=== PATIENT | male | born 1955 | race Caucasian/White ===

== ENCOUNTER 2017-02-12 11:06 | Outpatient (CLI) | payer OTHER | END 2017-02-12 11:07 | disposition home or self-care (01) | LOC: DI 11:06 | PROVIDERS: ATTEND Physician Assistant | DX: R01.1 Cardiac murmur, unspecified (principal); I08.2 Rheumatic disorders of both aortic and tricuspid valves | CPT/HCPCS: 93306 ==

== ENCOUNTER 2019-02-20 09:46 | Outpatient (CLI) | payer OTHER | END 2019-02-20 09:47 | disposition home or self-care (01) | LOC: DI 09:46 | PROVIDERS: ATTEND Physician Assistant | DX: I10 Essential (primary) hypertension (principal); I35.2 Nonrheumatic aortic (valve) stenosis with insufficiency | CPT/HCPCS: 93306 ==

== ENCOUNTER 2019-06-20 09:51 | Outpatient (CLI) | payer OTHER ==
--- NOTE | 2019-06-20 10:15 | XRAY Report ---
Reason: DYSPNEA Procedure Date: 06/20/2019 Accession Number: [id number] / [id number] Procedure: XR - Chest 2 View X-Ray CPT Code: 08831 Final Report FULL RESULT: EXAM: CHEST RADIOGRAPHY EXAM DATE: 06/20/2019 10:01 AM. CLINICAL HISTORY: DYSPNEA. COMPARISON: 09/17/2007 11:04 AM. TECHNIQUE: 2 views. FINDINGS: Lungs/Pleura: Lung volumes are within normal limits. There is reticular opacity within the left lung base. There is a small left pleural effusion. There is no pneumothorax. Mediastinum: Normal heart size. There is thoracic aorta tortuosity. Patient has undergone median sternotomy. Other: None. IMPRESSION: 1. Normal lung volumes and heart size. Patient has undergone median sternotomy. 2. There is reticular opacity within the left lung base. This could represent atelectasis or resolving infiltrate. 3. There is a small left pleural effusion. 4. There is no evidence of pneumothorax. RADIA
== END 2019-06-20 09:52 | disposition home or self-care (01) ==
LOC: DI 09:51
PROVIDERS: ATTEND Physician Assistant
DX: R91.8 Other nonspecific abnormal finding of lung field (principal); J90 Pleural effusion, not elsewhere classified
CPT/HCPCS: 71046

== ENCOUNTER 2021-05-16 21:41 | Outpatient (CLI) | payer OTHER | END 2021-05-16 21:42 | disposition critical access hospital (66) | LOC: EMS 21:41 | DX: I95.9 Hypotension, unspecified (principal); I44.1 Atrioventricular block, second degree; R40.0 Somnolence; R32 Unspecified urinary incontinence; R15.9 Full incontinence of feces | CPT/HCPCS: A0425; A0427 ==

== ENCOUNTER 2021-05-16 22:08 | Emergency (ER) | payer OTHER ==
[2021-05-16] MEDS ORDERED: SODIUM CHLORIDE 0.9% 1,000 ML IV STA (22:18)
[2021-05-16] MEDS ORDERED: EPINEPHrine 4 MG in DEXTROSE 5% 246 ML IV STA (22:22)
--- NOTE | 2021-05-16 22:23 | ED Physician Documentation ---
PD HPI CHEST PAIN - Stated complaint Stated Complaint: Mobitz 2 Heart Block - Chief complaint Chief Complaint: Cardiac - History obtained from History obtained from: Patient, EMS - History of Present Illness Timing - onset: Today Timing - onset during: Rest Timing - duration: Days (1) Timing - details: Gradual onset, Still present Quality: Tightness. No: Sharp, Tearing Location: Other (The patient denies chest pain per se. He states he was feeling some pressure in the chest generally and also general weakness.) Radiation: No: Back, Abdominal Associated symptoms: Shortness of air, Nausea, Feeling faint / dizzy, General W eakness Similar symptoms before: Has not had sx before Recently seen: Clinic (reportedly had Duloxetine med added few weeks ago for mood disorder by PMD. Also with low back pain exacerbation recently and had steroid IM at clinic last week.) Review of Systems Constitutional: denies: Fever Nose: denies: Rhinorrhea / runny nose, Congestion Throat: denies: Sore throat Cardiac: reports: Pedal edema (chronic). denies: Palpitations, Calf pain Respiratory: reports: Dyspnea. denies: Cough GI: reports: Nausea, Bloody / black stool (he states had some dark stools without diarrhea for several days.). denies: Vomiting, Diarrhea : denies: Dysuria Neurologic: reports: Generalized weakness, Near syncope, Confused (today with pale color), Altered mental status. denies: Focal weakness, Numbness, Syncope PD PAST MEDICAL HISTORY - Past Medical History Cardiovascular: Congestive heart failure, Coronary artery disease (with CABG 2 years ago at [facility], Dr. Aguilar?) Respiratory: None Neuro: None Endocrine/Autoimmune: None Musculoskeletal: Chronic back pain Derm: Other (no reported history of leukemia/lymphoma.) - Present Medications Home Medications: Ambulatory Orders Medication Instructions Recorded Confirmed Atorvastatin Calcium [Lipitor] 80 mg PO DAILY 05/16/21 05/16/21 Cyclobenzaprine [Flexeril] 10 mg PO TID 05/16/21 05/17/21 DULoxetine [Cymbalta] 20 mg PO DAILY 05/16/21 05/17/21 Losartan [Cozaar] 50 mg PO DAILY 05/16/21 05/17/21 Meloxicam [Mobic] 7.5 mg PO DAILY 05/16/21 05/17/21 hydrOXYzine HCL [Hydroxyzine HCl] 25 mg PO DAILY 05/16/21 05/16/21 traZODone [Desyrel] 50 mg PO DAILY 05/16/21 05/16/21 clonazePAM [Clonazepam] 1 mg PO DAILY 05/17/21 05/17/21 - Allergies Allergies/Adverse Reactions: Allergies Allergy/AdvReac Type Severity Reaction Status Date / Time No Known Drug Allergies Allergy Verified 05/16/21 22:14 PD ED PE NORMAL - Vitals Vital signs reviewed: Yes (paced rhythm externally) - General General: Well developed/nourished, Other (slightly sluggish responses, but spontaneous eye opening and follows commands. ) - HEENT HEENT: Pharynx benign - Neck Neck: Supple, no meningeal sign, No adenopathy, No bruit, Other (has JVD at 60 degrees.) - Cardiac Cardiac: Other (Right sided murmur consistent with likely mitral.). No: RRR (He has twitching of the right pectoral muscles from the external pacer. This is uncomfortable for him. Monitor shows capture and has a heart sounds consistent with pacer capturing.) - Respiratory Respiratory: No: Clear bilaterally (Some fine crackles in the bases. No coarse sounds no wheezing.) - Abdomen Abdomen: Soft, Non tender - Back Back: No CVA TTP - Derm Derm: Warm and dry. No: Normal color (pale coloration) - Extremities Extremities: Normal ROM s pain, No calf tenderness / cord, Other (1+ edema in both lower legs. faint DP pulses in feet. Also faint radial pulses. ) - Neuro Neuro: Alert and oriented X 3, No motor deficit, Normal speech Results - Vitals Vitals: Vital Signs - 24 hr 05/16/21 05/16/21 05/16/21 22:14 22:29 22:30 Temperature 34.5 C L Heart Rate 80 80 Respiratory 7 L 19 35 H Rate Blood Pressure 92/54 L 106/60 O2 Saturation 88 L 100 05/16/21 05/16/21 05/16/21 22:36 22:41 22:48 Temperature Heart Rate 80 80 80 Respiratory 38 H 21 37 H Rate Blood Pressure 89/60 L 78/56 L 82/55 L O2 Saturation 100 100 97 05/16/21 05/16/21 05/16/21 22:51 22:57 22:58 Temperature Heart Rate 80 80 80 Respiratory 22 21 13 Rate Blood Pressure 102/44 L 102/44 L 82/51 L O2 Saturation 96 99 96 05/16/21 05/16/21 05/16/21 23:04 23:07 23:16 Temperature Heart Rate 80 80 80 Respiratory 21 10 L 30 H Rate Blood Pressure 83/58 L 85/60 L 93/61 O2 Saturation 92 97 95 05/16/21 05/16/21 05/16/21 23:20 23:30 23:33 Temperature Heart Rate 80 80 80 Respiratory 19 20 18 Rate Blood Pressure 64/29 L 78/58 L 75/58 L O2 Saturation 94 92 91 L 05/16/21 05/16/21 05/16/21 23:37 23:44 23:57 Temperature Heart Rate 80 80 80 Respiratory 18 15 15 Rate Blood Pressure 71/59 L 89/65 L 83/44 L O2 Saturation 99 92 93 05/17/21 00:00 Temperature Heart Rate 80 Respiratory 21 Rate Blood Pressure 93/56 L O2 Saturation 92 Oxygen O2 Source Nasal cannula Oxygen Flow Rate 2 - Labs Labs: Laboratory Tests 05/16/21 05/16/21 05/16/21 00:02 00:02 22:30 WBC RBC Hgb Hct MCV MCH MCHC RDW Plt Count MPV Neut # (Auto) Lymph # (Auto) [place] # (Auto) Eos # (Auto) Baso # (Auto) Absolute Nucleated RBC Total Counted Band Neuts % (Manual) Abnorm Lymph % (Manual) Nucleated RBC % Neutrophils # (Manual) Lymphocytes # (Manual) Monocytes # (Manual) Eosinophils # (Manual) Basophils # (Manual) Differential Comment WBC Morphology Platelet Estimate Platelet Morphology RBC Morph Micro Appear Sodium Potassium Chloride Carbon Dioxide Anion Gap BUN Creatinine Estimated GFR (MDRD) Glucose Lactic Acid 4.4 H* Calcium Magnesium Total Bilirubin AST ALT Alkaline Phosphatase Troponin I High Sens B-Natriuretic Peptide Total Protein Albumin Globulin Albumin/Globulin Ratio Lipase Nasal Adenovirus (PCR) NOT DETECTED Nasal B. parapertussis DNA (PCR) NOT DETECTED Nasal Coronavir 229E PCR NOT DETECTED Nasal Coronavir HKU1 PCR NOT DETECTED Nasal Coronavir NL63 PCR NOT DETECTED Nasal Coronavir OC43 PCR NOT DETECTED Nasal Enterovir/Rhinovir PCR NOT DETECTED Nasal Influenza B PCR NOT DETECTED Nasal Influenza A PCR NOT DETECTED Nasal Parainfluen 1 PCR NOT DETECTED Nasal Parainfluen 2 PCR NOT DETECTED Nasal Parainfluen 3 PCR NOT DETECTED Nasal Parainfluen 4 PCR NOT DETECTED Nasal RSV (PCR) NOT DETECTED Nasal B.pertussis DNA PCR NOT DETECTED Nasal C.pneumoniae (PCR) NOT DETECTED Aryan Human Metapneumo PCR NOT DETECTED Nasal M.pneumoniae (PCR) NOT DETECTED Nasal SARS-CoV-2 (PCR) NOT DETECTED Blood Type Blood Type Recheck O POSITIVE Antibody Screen 05/16/21 05/16/21 05/16/21 23:03 23:03 23:03 WBC 61.0 H* RBC 3.87 L Hgb 11.5 L Hct 35.2 L MCV 91.0 MCH 29.7 MCHC 32.7 RDW 12.5 Plt Count 169 MPV 10.8 Neut # (Auto) Not Reportable Lymph # (Auto) Not Reportable [place] # (Auto) Not Reportable Eos # (Auto) Not Reportable Baso # (Auto) Not Reportable Absolute Nucleated RBC Not Reportable Total Counted 100 Band Neuts % (Manual) 0 Abnorm Lymph % (Manual) 0 Nucleated RBC % Not Reportable Neutrophils # (Manual) 55.5 H Lymphocytes # (Manual) 3.1 Monocytes # (Manual) 2.4 H Eosinophils # (Manual) 0.0 Basophils # (Manual) 0.0 Differential Comment MANUAL DIFFERENTIAL WBC Morphology NORMAL APPEARANCE Platelet Estimate NORMAL (130-450,000) Platelet Morphology NORMAL APPEARANCE RBC Morph Micro Appear NORMAL APPEARANCE Sodium 133 L Potassium 5.2 H Chloride 101 Carbon Dioxide 15 L Anion Gap 17.0 H BUN 68 H Creatinine 3.1 H Estimated GFR (MDRD) 20 L Glucose 217 H Lactic Acid Calcium 8.9 Magnesium 2.2 Total Bilirubin 1.6 H AST 119 H ALT 180 H Alkaline Phosphatase 80 Troponin I High Sens 5244.1 H* B-Natriuretic Peptide Total Protein 5.9 L Albumin 2.3 L Globulin 3.6 Albumin/Globulin Ratio 0.6 L Lipase 27 Nasal Adenovirus (PCR) Nasal B. parapertussis DNA (PCR) Nasal Coronavir 229E PCR Nasal Coronavir HKU1 PCR Nasal Coronavir NL63 PCR Nasal Coronavir OC43 PCR Nasal Enterovir/Rhinovir PCR Nasal Influenza B PCR Nasal Influenza A PCR Nasal Parainfluen 1 PCR Nasal Parainfluen 2 PCR Nasal Parainfluen 3 PCR Nasal Parainfluen 4 PCR Nasal RSV (PCR) Nasal B.pertussis DNA PCR Nasal C.pneumoniae (PCR) Aryan Human Metapneumo PCR Nasal M.pneumoniae (PCR) Nasal SARS-CoV-2 (PCR) Blood Type Blood Type Recheck Antibody Screen 05/16/21 05/16/21 23:03 23:03 WBC RBC Hgb Hct MCV MCH MCHC RDW Plt Count MPV Neut # (Auto) Lymph # (Auto) [place] # (Auto) Eos # (Auto) Baso # (Auto) Absolute Nucleated RBC Total Counted Band Neuts % (Manual) Abnorm Lymph % (Manual) Nucleated RBC % Neutrophils # (Manual) Lymphocytes # (Manual) Monocytes # (Manual) Eosinophils # (Manual) Basophils # (Manual) Differential Comment WBC Morphology Platelet Estimate Platelet Morphology RBC Morph Micro Appear Sodium Potassium Chloride Carbon Dioxide Anion Gap BUN Creatinine Estimated GFR (MDRD) Glucose Lactic Acid Calcium Magnesium Total Bilirubin AST ALT Alkaline Phosphatase Troponin I High Sens B-Natriuretic Peptide 628 H Total Protein Albumin Globulin Albumin/Globulin Ratio Lipase Nasal Adenovirus (PCR) Nasal B. parapertussis DNA (PCR) Nasal Coronavir 229E PCR Nasal Coronavir HKU1 PCR Nasal Coronavir NL63 PCR Nasal Coronavir OC43 PCR Nasal Enterovir/Rhinovir PCR Nasal Influenza B PCR Nasal Influenza A PCR Nasal Parainfluen 1 PCR Nasal Parainfluen 2 PCR Nasal Parainfluen 3 PCR Nasal Parainfluen 4 PCR Nasal RSV (PCR) Nasal B.pertussis DNA PCR Nasal C.pneumoniae (PCR) Aryan Human Metapneumo PCR Nasal M.pneumoniae (PCR) Nasal SARS-CoV-2 (PCR) Blood Type O POSITIVE Blood Type Recheck Antibody Screen NEGATIVE - Rads (name of study) chest xray Radiology: Prelim report reviewed (mild diffuse pneumonia versus edema. ), See rad report PD MEDICAL DECISION MAKING - ED course Complexity details: re-evaluated patient (Patient does have improved color and a reasonable enough blood pressure in the 90s systolic with external pacing that is capturing and epinephrine drip.), considered differential (The patient is in apparent third-degree heart block with hypotension that is improved with external pacing. His blood pressure is still moderately low. He is not on beta-blockers. Most likely heart failure or AR as the cause.), d/w patient, d/w political consultant (Dr. Brothers, [facility] Examiner at [facility]. ) ED course: The patient is obviously critically ill with likely AR. He is having capture with external pacing to improve his heart rate. He clearly needs a higher level of care and I attempt to transferring the patient soon after arrival while still working on johnston interventions with pressure support and maintaining the external pacing. Given capture of the external pacing, I did not move to intravascular pacing at this point. The patient did not have any obvious ST elevation. As such [facility] could not take him as a STEMI despite the need for urgent pacemaker. They were on divert. We tried multiple other hospitals and finally the [facility] transfer center was able to find a bed available at [facility]. I talked to the linux engineer there who accepted the patient in transfer after he consulted with his tube fitter. The patient is critical here with reliant on external pacer and is on a epinephrine drip. He had affirmed his DNR status without wanting compressions or intubation when I talked to him initially and nursing as well. Is troponin was coming back showing extremely high elevation of 5000. His BNP was elevated as well. Chest x-ray showed vascular fullness consistent with CHF. Presume acute AR with AV muna dysfunction, most likely inferior wall. His history of coronary disease and bypass surgery may be reluctant to want to give too much fluid. He had been given some IV fluid bolus with a slight bump in his blood pressure. Otherwise we would work more on pressors. The epinephrine drip was increasing his blood pressure reasonably enough. It was still in the upper 80s to 90s systolic. Airlift personnel and I discussed medications and collaborative decision to add dopamine as well. The fog was settling in and so the helicopter could not fly but [facility] personnel were going to go with our medics for the higher level of care and transfer to [facility]. The normal fairly saline times were over for the night but they were going to lunch a ferry separately for this transfer to minimize time. This was due to the time dependent critical nature and getting the patient transferred. Just as EMS was getting ready to leave, I saw that the [facility] personnel had given some extra pain medicine to the patient, and he was now less responsive and somewhat hypoventilating. They apparently talked with the patient about intubation and he agreed to them. They intubated the patient on their prerogative after reported consent with the patient. - Critical Care Time(min): 65 Time Includes: Direct patient care, Reassess patient, Document care, Coordinate care, Medical consult (for transfer) Data interpretation: Labs, Pulse ox, CXR Procedures excluded from critical care time: EKG Departure - Departure Disposition: 02 Transfer Acute Care Hosp Clinical Impression: Third degree heart block Hypotension Qualifiers: Hypotension type: unspecified hypotension type Qualified Code(s): I95.9 - Hypotension, unspecified Acute AR Qualifiers: Myocardial infarction type: non-ST elevation myocardial infarction Qualified Code(s): I21.4 - Non-ST elevation (NSTEMI) myocardial infarction Leukocytosis Qualifiers: Leukocytosis type: unspecified Qualified Code(s): D72.829 - Elevated white blood cell count, unspecified Renal failure, acute Qualifiers: Acute renal failure type: unspecified Qualified Code(s): N17.9 - Acute kidney failure, unspecified Condition: Stable Record reviewed to determine appropriate education?: Yes Discharge Date/Time: 05/17/21 00:55
[2021-05-16] MEDS ORDERED: KETOROLAC 30 MG/ML VIAL IVP STA (22:24)
[2021-05-16] MEDS ORDERED: HYDROmorphone 0.5 MG/0.5 ML SYRINGE IVP STA ×2 (22:24→23:18)
[2021-05-16] MEDS ORDERED: EPINEPHrine 1 MG/ML AMP ONE (22:33)
--- NOTE | 2021-05-16 22:58 | XRAY Report ---
PROCEDURE: Chest 1 View X-Ray INDICATIONS: chest pain TECHNIQUE: One view of the chest was acquired. COMPARISON: 06/20/2019 FINDINGS: Surgical changes and devices: Median sternotomy. Lungs and pleura: No pleural effusions or pneumothorax. Mild diffuse groundglass pulmonary opacity.. Mediastinum: Mediastinal contours appear normal. Heart size is normal. Bones and chest wall: No suspicious bony lesions. Overlying soft tissues appear unremarkable. IMPRESSION: Mild diffuse pneumonia versus edema. Reviewed by: Danae Duque MD on 05/16/2021 10:57 PM PST Approved by: Danae Duque MD on 05/16/2021 10:57 PM [facility] Station ID: [id number]
[2021-05-16 23:14] LABS: BASOPHILS % (AUTO) 0.1 %; EOSINOPHILS % (AUTO) 0.2 %; HCT - HEMATOCRIT 35.2 % (42.0-52.0); HGB - HEMOGLOBIN 11.5 g/dL (14.0-18.0); LYMPHOCYTES % (AUTO) 2.5 %; MEAN CORPUSCULAR HEMOGLOBIN 29.7 pg (27.0-31.0); MEAN CORPUSCULAR HGB CONC 32.7 g/dL (32.0-36.0); MEAN PLATELET VOLUME 10.8 fL (7.4-11.4); MONOCYTES % (AUTO) 2.8 %; NEUTROPHILS % (AUTO) 91.5 %; PLT - PLATELET COUNT 169 10^3/uL (130-450); RED BLOOD COUNT 3.87 10^6/uL (4.70-6.10); RED CELL DISTRIBUTION WIDTH 12.5 % (12.0-15.0)
[2021-05-16 23:17] LABS: ABNORMAL LYMPHS % (MANUAL) 0 %; BAND NEUTROPHILS % (MANUAL) 0 %
[2021-05-16 23:28] LABS: ALBUMIN 2.3 g/dL (3.2-5.5); ALBUMIN/GLOBULIN RATIO 0.6 (1.0-2.2); BILIRUBIN,TOTAL 1.6 mg/dL (0.2-1.0); CALCIUM 8.9 mg/dL (8.5-10.3); CREATININE 3.1 mg/dL (0.6-1.2); MAGNESIUM 2.2 mg/dL (1.7-2.8); POTASSIUM 5.2 mmol/L (3.5-5.0); TOTAL PROTEIN 5.9 g/dL (6.7-8.2)
[2021-05-16 23:31] LABS: B. PARAPERTUSSIS- RESP PCR PAN NOT DETECTED; B. PERTUSSIS- RESP PCR PANEL NOT DETECTED; C. PNEUMONIAE- RESP PCR PANEL NOT DETECTED; CORONAVIRUS 229E-RESP PCR NOT DETECTED; CORONAVIRUS HKU1-RESP PCR NOT DETECTED; CORONAVIRUS NL63-RESP PCR NOT DETECTED; CORONAVIRUS OC43-RESP PCR NOT DETECTED; HUMAN METAPNEUMOVIRUS NOT DETECTED; INFLUENZA A- RESP PCR PANEL NOT DETECTED; INFLUENZA B - RESP PCR PANEL NOT DETECTED; M. PNEUMONIAE- RESP PCR PANEL NOT DETECTED; PARAINFLUENZA VIRUS 1 NOT DETECTED; PARAINFLUENZA VIRUS 2 NOT DETECTED; PARAINFLUENZA VIRUS 3 NOT DETECTED; PARAINFLUENZA VIRUS 4 NOT DETECTED; RHINOVIRUS/ENTEROVIRUS NOT DETECTED; RSV- RESP PCR PANEL NOT DETECTED; SARS-CoV-2 -RESP PCR PANEL NOT DETECTED
[2021-05-16 23:37] LABS: LYMPHOCYTES # (MANUAL) 3.1 10^3/uL (1.5-3.5); LYMPHOCYTES % (MANUAL) 5 %; MONOCYTES # (MANUAL) 2.4 10^3/uL (0.0-1.0); NEUTROPHILS # (MANUAL) 55.5 10^3/uL (1.5-6.6); PLATELET ESTIMATE, MANUAL NORMAL (130-450,000) (NORMAL); PLATELET MORPHOLOGY NORMAL APPEARANCE (NORMAL); RBC MORPHOLOGY (MULTIPLE) NORMAL APPEARANCE (NORMAL); WBC MORPHOLOGY (MULTIPLE) NORMAL APPEARANCE (NORMAL)
[2021-05-16 23:38] LABS: DIFFERENTIAL COMMENT MANUAL DIFFERENTIAL
[2021-05-16] MEDS ORDERED: ASPIRIN CHEW 81 MG TABLET PO STA (23:51)
[2021-05-17 00:48] VITALS: BP 93/56
== END 2021-05-17 00:55 | disposition short-term general hospital (02) ==
LOC: EDUNIT# → ED 22:08 → SUPCPDRO 22:08 → ED 05-17 00:55
DX: I21.4 Non-ST elevation (NSTEMI) myocardial infarction (principal); I44.2 Atrioventricular block, complete; N17.9 Acute kidney failure, unspecified; D72.829 Elevated white blood cell count, unspecified; Z95.1 Presence of aortocoronary bypass graft; Z66 Do not resuscitate; Z20.822 Contact with and (suspected) exposure to COVID-19
CPT/HCPCS: 0202U; 36415; 71045; 80053; 83605; 83690; 83735; 83880; 84484; 85025; 86850; 86900; 86901; 87040; 87150; 93005; 96365; 96375; 96376; 99291; A9270; J1170; 87077

== ENCOUNTER 2021-05-17 00:44 | Outpatient (CLI) | payer OTHER | END 2021-05-17 00:45 | disposition short-term general hospital (02) | LOC: EMS 00:44 | PROVIDERS: ATTEND Emergency Medicine | DX: R00.1 Bradycardia, unspecified (principal) | CPT/HCPCS: A0425; A0428 ==